=== PATIENT | male | born 1955 | race Caucasian/White ===

== ENCOUNTER → 2016-06-19 | Outpatient (CLI) | payer BC ==
[2016-06-19 10:43] LABS: Non-African American GFR(MDRD) >60 (>60 ml/min/1.73 sqM)
--- NOTE | 2016-06-19 15:21 | MR ---
EXAMINATION TYPE: MR abdomen wo/w con DATE OF EXAM: 06/19/2016 11:53 AM COMPARISON: 12/19/2015 HISTORY: 61-year-old male follow-up liver mass. Technique: Multiplanar, multisequence images of the abdomen were obtained before and after administra tion of 19 mL intravenous MultiHance gadolinium contrast. FINDINGS: Small hiatal hernia. Scattered hepatic cysts are redemonstrated measuring up to 2 cm. A 7 mm mildly T2 hyperintense lesion again noted centrally in the right hepatic lobe behind the right portal vein continues to follow the blood pool on postcontrast images suggesting a hemangioma. Redemonstrated T2 hyperintense irregular lesion within segment 7 of the right hepatic lobe extending slightly into segment 6. This measures 5.4 cm craniocaudal by 5.3 cm AP by 5.3 cm wide. This is in co mparison to 5.4 x 5.4 x 5.3 cm. There is continued foci of prominent internal and peripheral irregula r nodular enhancement that enlarges on subsequent contrast phases. No biliary ductal dilatation. Portal venous system is patent. Gallbladder and adrenal glands within normal limits. Redemonstrated subcentimeter cysts in the lower pole right kidney. Also, redemonstrated 2.1 cm unilocular cyst along the superior pancreatic body and an adjacent 6 mm c yst at the junction of the pancreatic tail and body. Again, these show no suspicious nodular or massl maximino enhancement. Also redemonstrated is a ring enhancing lesion that shows progressive enhancement on the later contra st phases. This now measures 1 cm vs 8 mm, previously. This is located at the anterior junction of t he pancreatic body and tail. This is better seen on T2-weighted sequence as hypointense on the curren t exam. No abdominal ascites, upper abdominal lymphadenopathy, or gross bowel abnormality. IMPRESSION: 1. Stable mass centered primarily within segment 7 of the right hepatic lobe measuring 5.4 cm. Enhanc ement characteristics are not classic. Atypical hemangioma is considered most likely. Given atypical characteristics, continued 6 month follow-up exam can be performed. 2. A progressively enhancing lesion at the anterior junction of the pancreatic body and tail is minim ally larger now measuring 1 cm versus 8 mm, previously. Neuroendocrine/islet cell tumors generally sh ow arterial phase enhancement. The etiology is not clear at this time. This should also continue to b e followed. Correlate with tumor markers in the interval. 3. Cystic pancreatic lesions measuring up to 2.1 cm are unchanged.
== END | disposition home or self-care (01) ==
LOC: RADMRIMAIN 09:59
PROVIDERS: ATTEND Surgery
DX: K76.89 Other specified diseases of liver (principal); K86.2 Cyst of pancreas
CPT/HCPCS: 82565; 74183; 36415; A9577

== ENCOUNTER → 2016-10-22 | Outpatient (CLI) | payer BC ==
--- NOTE | 2016-10-22 13:05 | XR ---
2 view abdomen HISTORY: Right lower quadrant pain 2 views of the abdomen on [address] abdomen 11/06/2015, MR abdomen 06/19/2016 There is no pneumoperitoneum or bowel obstruction evident. Lung bases are clear. There is a mild scol iotic curvature in the spine. Postop changes noted to the lower abdomen. Some retained fecal debris i s present within the colon. IMPRESSION: Scoliosis, postop changes. Correlate for possible fecal stasis.
== END | disposition home or self-care (01) ==
LOC: RADXRYALE 11:14
PROVIDERS: ATTEND Physician Assistant Medical
DX: R10.31 Right lower quadrant pain (principal)
CPT/HCPCS: 74020

== ENCOUNTER → 2017-03-18 | Outpatient (CLI) | payer OTHER ==
--- NOTE | 2017-03-18 09:34 | XR ---
EXAMINATION TYPE: XR abdomen 2V DATE OF EXAM: 03/18/2017 CLINICAL HISTORY: Left lower quadrant soft tissue mass felt by patient. TECHNIQUE: Supine and upright views of the abdomen are obtained. COMPARISON: Two-view abdominal x-ray October 22, 2016. CT abdomen November 06, 2015. FINDINGS: Scattered gas is seen in non-distended small bowel loops. Gas and fecal material is seen in non-distended colon. There is redemonstration of 4 mm left renal calculus at L2 level. Additional smaller calculi bilaterally are less well seen on plain films. Coils overlie right superior pelvic ra mus. No pneumoperitoneum is seen. Underlying dextroconvex scoliosis and lumbar spine is redemonstrate d. IMPRESSION: Overall nonobstructive bowel gas pattern. Consider CT follow-up for better evaluation of palpable mass.
== END | disposition home or self-care (01) ==
LOC: RADXRYALE 08:59
PROVIDERS: ATTEND Physician Assistant Medical
DX: R10.32 Left lower quadrant pain (principal)
CPT/HCPCS: 74019

== ENCOUNTER → 2018-01-28 | Outpatient (CLI) | payer OTHER ==
[2018-01-28 10:14] LABS: Basophils % (A) 0 %; Eosinophils # (A) 0.5 k/uL (0-0.7); Eosinophils % (A) 5 %; HCT 42.8 % (39.0-53.0); HGB 14.3 gm/dL (13.0-17.5); Lymphocytes # (A) 2.7 k/uL (1.0-4.8); Lymphocytes % (A) 32 %; MCH 31.9 pg (25.0-35.0); MCHC 33.4 g/dL (31.0-37.0); MCV 95.5 fL (80.0-100.0); Mean Platelet Volume 6.6; Monocytes # (A) 0.5 k/uL (0-1.0); Monocytes % (A) 6 %; Neutrophils # (A) 4.7 k/uL (1.3-7.7); Neutrophils % (A) 55 %; Platelet Count 411 k/uL (150-450); RBC 4.48 m/uL (4.30-5.90); RDW 13.1 % (11.5-15.5); WBC 8.4 k/uL (3.8-10.6)
[2018-01-28 10:33] LABS: INR 0.9 (<1.2); Partial Thromboplastin Time 23.1 sec (22.0-30.0); Prothrombin Time 9.6 sec (9.0-12.0)
[2018-01-28 16:03] LABS: Albumin 4.5 g/dL (3.80-4.90); Albumin/Globulin Ratio 2.5 (1.20-2.10); Anion Gap 6.8 mmol/L (4.00-12.00); Calcium 9.7 mg/dL (8.7-10.3); Carbon Dioxide 24.2 mmol/L (21.6-31.8); Globulin 1.8 g/dL (2.1-3.7); LDL Cholesterol,Calculated 139.6 mg/dL (0.0-131.0); Potassium 4.6 mmol/L (3.5-5.5); Total Bilirubin 0.4 mg/dL (0.2-1.2); Total Protein 6.3 g/dL (6.2-8.2); VLDL Calculation 19.4 mg/dL (5.00-40.00)
[2018-01-28 17:28] LABS: Hemoglobin A1C 5.7 % (4.0-6.0)
== END ==
LOC: LABWHC1 08:55
PROVIDERS: ATTEND Physician Assistant Medical
DX: Z01.812 Encounter for preprocedural laboratory examination (principal); M51.36 Other intervertebral disc degeneration, lumbar region; E78.2 Mixed hyperlipidemia; I10 Essential (primary) hypertension
CPT/HCPCS: 36415; 80053; 80061; 80323; 82550; 83036; 84443; 85025; 85610; 85730

== ENCOUNTER → 2019-06-29 | Outpatient (CLI) | payer OTHER ==
--- NOTE | 2019-06-29 16:29 | XR ---
EXAMINATION TYPE: XR knee complete RT DATE OF EXAM: 06/29/2019 CLINICAL HISTORY: Increasing generalized knee pain. History of replacement surgery 3 years earlier TECHNIQUE: Three views of the right knee are obtained. COMPARISON: None. FINDINGS: There is no acute fracture/dislocation evident in right knee. Surgical change from Tani-pl asty procedure identified. No suspicious surrounding lucency. Mild to moderate narrowing and spurring lateral tibiofemoral compartment. Moderate to severe narrowing and mild spurring patellofemoral comp artment. Increased soft tissue density suprapatellar bursa suspicious for small to moderate joint eff usion. IMPRESSION: As above.
== END | disposition home or self-care (01) ==
LOC: RADXRYALE 15:50
PROVIDERS: ATTEND Physician Assistant Medical
DX: M25.861 Other specified joint disorders, right knee (principal); M79.89 Other specified soft tissue disorders